=== PATIENT | male | born 1980 | race American Indian/Alaskan Native ===

== ENCOUNTER 2021-06-11 17:32 | Emergency (ER) | payer MEDICAID, MEDICARE, OTHER ==
[2021-06-11 17:50] VITALS: BP 146/83
--- NOTE | 2021-06-11 19:13 | Emergency Department Report ---
ED General Adult HPI - General Chief complaint: High BP Stated complaint: HIGH BLOOD PRESSURE Time Seen by Provider: 06/11/21 18:33 Source: patient Mode of arrival: Ambulatory Limitations: No Limitations - History of Present Illness Initial comments: 41-year-old male with past medical history of anxiety depression who recently lost his son unexpectedly due to due to glucosuria wanted to check himself into the mental health facility to obtain help breathing and currently still residing there today. Had a routine check and was found to have elevated blood pressure while he was in a stressful situation blood pressure was reportedly in the 200s over 100s advised to come to emergency department for evaluation. However in emergency department blood pressure maintaining stage I or lower and asymptomatic during his entire ED visit. Alert and oriented x3 speaks in full sentences no hemodynamic instability. -: Gradual Radiation: non-radiation Quality: dull Consistency: constant Improves with: none Worsens with: none Associated Symptoms: other - Related Data Allergies Allergy/AdvReac Type Severity Reaction Status Date / Time No Known Allergies Allergy Unverified 06/11/21 17:45 ED Review of Systems ROS: Stated complaint: HIGH BLOOD PRESSURE Other details as noted in HPI Comment: All other systems reviewed and negative ED Past Medical Hx - Past Medical History Previous Medical History?: Yes Hx Hypertension: Yes Hx Diabetes: Yes Hx Asthma: Yes - Surgical History Past Surgical History?: No ED Physical Exam - General Limitations: No Limitations General appearance: alert, in no apparent distress - Head Head exam: Present: atraumatic, normocephalic - Eye Eye exam: Present: normal appearance - ENT ENT exam: Present: mucous membranes moist - Neck Neck exam: Present: normal inspection - Respiratory Respiratory exam: Present: normal lung sounds bilaterally. Absent: respiratory distress - Cardiovascular Cardiovascular Exam: Present: regular rate, normal rhythm. Absent: systolic murmur, diastolic murmur, rubs, gallop - GI/Abdominal GI/Abdominal exam: Present: soft, normal bowel sounds - Rectal Rectal exam: Present: deferred - Extremities Exam Extremities exam: Present: normal inspection - Back Exam Back exam: Present: normal inspection - Neurological Exam Neurological exam: Present: alert, oriented X3 - Psychiatric Psychiatric exam: Present: normal affect, normal mood - Skin Skin exam: Present: warm, dry, intact, normal color. Absent: rash ED Course Vital Signs 06/11/21 17:47 Temperature 99.4 F Pulse Rate 96 H Respiratory 18 Rate Blood Pressure 146/83 [Right] O2 Sat by Pulse 98 Oximetry Critical care attestation.: If time is entered above; I have spent that time in minutes in the direct care of this critically ill patient, excluding procedure time. ED Disposition Clinical Impression: HTN (hypertension), Medical clearance for psychiatric admission Disposition: HOME / SELF CARE / HOMELESS Is pt being admited?: No Does the pt Need Aspirin: No Condition: Stable Instructions: Hypertension, Adult, [id number], Medical Screening Exam, Managing Your Hypertension, Hypertension, Adult, Hypertension (ED) Additional Instructions: 11. Emergency department today for hypertension which is 140s over the 80s and asymptomatic. The present time no intervention is necessary as there is no urgent or emergent condition present. You can return to [facility] or you are cleared to go home depending upon your status today. Please follow-up with the primary care provider for close monitoring of your blood pressure and return to emergency department should you expands any chest pain, palpitations, headache, presyncope, fevers, chills, sweats or any concerns symptoms suggest your condition is worsening Referrals: PRIMARY MEDICAL CARE [Provider Group] - 3-5 Days
== END 2021-06-11 20:00 | disposition home or self-care (01) ==
LOC: ED 17:32
DX: I10 Essential (primary) hypertension (principal); Z13.30 Encounter for screening examination for mental health and behavioral disorders, unspecified; E11.8 Type 2 diabetes mellitus with unspecified complications; J45.909 Unspecified asthma, uncomplicated
CPT/HCPCS: 99282; 99283